=== PATIENT | female | born 1965 | race Caucasian/White ===

== ENCOUNTER 2022-09-28 18:46 | Emergency (ER) | payer MEDICAID, OTHER ==
[~2022-09-28] VITALS: Ht 152.4 cm; Wt 65.0 kg
[2022-09-28 18:55] VITALS: BP 165/79
[2022-09-28] MEDS ORDERED: KETOROLAC 60MG/2ML VIAL IM ONE (22:45)
== END 2022-09-28 23:10 | disposition home or self-care (01) ==
LOC: ER 18:46
DX: M25.561 Pain in right knee (principal); M19.90 Unspecified osteoarthritis, unspecified site; Z98.51 Tubal ligation status
CPT/HCPCS: 73562; 96372; 99283; J1885

== ENCOUNTER 2023-06-11 04:56 | Emergency (ER) | payer MEDICAID, OTHER ==
[~2023-06-11] VITALS: Ht 157.5 cm; Wt 67.8 kg
[2023-06-11 05:12] VITALS: TEMP 98.2; O2SAT 100
[2023-06-11 05:33] LABS: CLARITY URINE CLEAR (CLEAR); COLOR URINE YELLOW (YELLOW); GLUCOSE URINE NEGATIVE (NEGATIVE); KETONES URINE NEGATIVE (NEGATIVE); LEUKOCYTE ESTERASE URINE 1+ (NEGATIVE); NITRITE URINE NEGATIVE (NEGATIVE); OCCULT BLOOD URINE TRACE (NEGATIVE); PROTEIN URINE NEGATIVE (NEGATIVE); SPECIFIC GRAVITY URINE 1.012 (1.005-1.030); UROBILINOGEN URINE 0.2 E.U./dL (0.2-1.0)
[2023-06-11 05:57] LABS: SQUAMOUS EPITHELIAL CELL URINE FEW /lpf (RARE/1+)
[2023-06-11 05:59] LABS: RBC URINE 0-2 /hpf (0-2)
[2023-06-11 06:06] LABS: BACTERIA URINE 1+
[2023-06-11 08:45] VITALS: BP 183/80; PULSE 72; RESP 16
[2023-06-11] MEDS ORDERED: KETOROLAC 60MG/2ML VIAL IM ONE (08:45)
[2023-06-11] MEDS ORDERED: IBUP-2029 MT (08:49)
[2023-06-11] MEDS ORDERED: CYCL10TA21 MT (08:49)
[2023-06-11] MEDS ORDERED: CEPH500C2 MT (08:50)
== END 2023-06-11 09:11 | disposition home or self-care (01) ==
LOC: ER 04:56
DX: M54.50 Low back pain, unspecified (principal)
CPT/HCPCS: 81003; 99283; J1885